=== PATIENT | female | born 1995 | race Caucasian/White ===

== ENCOUNTER 2018-04-12 10:29 | Emergency (ER) | payer BC, SELFPAY ==
[2018-04-12 10:31] VITALS: BP 123/78; PULSE 102; RESP 16; TEMP 37.6; O2SAT 98; BMI 23.6
--- NOTE | 2018-04-12 10:52 | CT_ITS ---
STUDY: CT ABDOMEN AND PELVIS WITH CONTRAST REASON FOR EXAM: Female, 22 years old. 4 day history of diarrhea. Blood in the stool. Chronic abdominal pain. RADIATION DOSAGE (If Supplied By Facility): CTDIvol = ( 7.94 ) mGy, DLP = ( 452.50 ) mGycm TECHNIQUE: Transaxial images were obtained from the dome of the diaphragm to the symphysis pubis with oral contrast. 100 ml of Isovue 300 contrast was administered. Sagittal and coronal images were reconstructed. Individualized dose optimization techniques were used for this CT. COMPARISON: None. FINDINGS: Minimal degree of dependent bibasilar atelectasis. The visualized portions of the heart are within normal limits. Normal liver. Normal gallbladder and extrahepatic biliary system. Normal spleen. Normal pancreas. Normal bilateral adrenal glands. Normal right kidney. Normal left kidney. There is a left-sided retrocrural aortic renal vein. Normal visualized stomach. Normal small intestine. Diffuse thickening of the colon worse in the right hemicolon. This is incomplete with colitis. The appendix is visualized and appears normal. Normal abdominal aorta. Normal inferior vena cava. Normal retroperitoneum. Normal urinary bladder. Small amount of free fluid in the pelvis. Normal abdominal wall. Normal osseous structures. CT/Abdomen/Pelvis WITH Contrast IMPRESSION: Findings in keeping with diffuse colitis worse in the right hemicolon. Small amount of free fluid in the pelvis. Electronically Signed: Estevan Wynne MD at 12:53 EDT Tel [phone], Service support ,
--- NOTE | 2018-04-12 10:55 | ED.VISSUMM ---
- ER Visit Summary Date of Service: 04/12/18 Chief Complaint: Blood in stool History of Present Illness: The patient is a 22 F whose had a fever up to 102 and diarrhea for the past 3 days. Today she noted blood in her stool as well. 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 She was seen by her doctor and was told it was likely a viral illness. Physical Examination: Vital signs are unremarkable. Patient sitting upright in bed no acute distress. Head neck examination is normal. Heart is regular rate and rhythm. Lung sounds are clear. Abdomen is soft and nontender. Active bowel sounds are noted throughout. Rectal examination reveals no obvious hemorrhoids. No gross blood on gloved finger. Test Results: Stool guaiac does return positive. CBC is normal. Chemistry studies are significant for potassium 3.3. Patency test is negative. CT the abdomen and pelvis shows diffuse colitis, worse in the right hemicolon. There is a small amount of free fluid in the pelvis. Emergency Department Course and Treatment: Patient was given a liter of IV fluids. On repeat evaluation she is resting comfortably. She will be given potassium replacement along with antibiotics for colitis. We did discuss the possibility this all being viral, however appearance on imaging is the same. With the patient having this much bowel involvement and having blood in the stool should be covered with antibiotics. Treatment Plan: [] Disposition: Discharge Impression: 1. Colitis 2. Mild hypokalemia This note was generated with [employer] dictation software. It may contain incorrect words, spelling, and punctuation that were not noted in review of the chart prior to signing ED Disposition - Plan for ED Patient: Chief Complaint: GI Bleed Referrals: Liliane Ellis MD [STAFF PHYSICIAN] -
[2018-04-12 11:45] LABS: Anion Gap 8 (5-15); BUN 8 mg/dL (7-18); BUN/Creat Ratio 9.6 RATIO (10-20); Calcium,Total 9.3 mg/dL (8.5-10.1); Chloride 103 mmol/L (98-107); Creatinine, Serum 0.83 mg/dL (0.55-1.02); EST Glomerular Filtration Rate 91 mL/min (>60); Est Glom Filt Rate - Afr Amer 111 mL/min (>60); Estimated Creatinine Clearance 92.59 ml/min; Glucose 104 mg/dL (74-106); Potassium 3.3 mmol/L (3.5-5.1); Sodium Level 140 mmol/L (136-145)
[2018-04-12 11:48] LABS: Absolute Lymphocyte Count 1.29 X10^3/ul (0.83-4.51); Absolute Neutrophil Count 5.3 X10^3/uL (2.0-7.7); Basophil# 0.02 X10^3/uL; Basophil% 0.3 % (0-1); Eosinophil# 0.03 X10^3/uL; Eosinophils% 0.4 % (0-5); Hematocrit 40.8 % (37-47); Hemoglobin 13.9 g/dl (12.0-15.0); Lymphocyte # 1.29 X10^3/ul (4.0); Lymphocyte % 17.1 % (19-41); Mean Corp Hgb Conc 34.1 g/gl (32-36); Mean Corpuscular Hgb 28.9 pg (27.0-32.0); Mean Corpuscular Volume 84.8 fL (81-99); Mean Platelet Vol. 9.7 fl (6.2-12.0); Monocyte# 0.95 X10^3/uL; Monocyte% 12.6 % (0-10); Neutrophil # 5.25 X10^3/uL (2.7-7.7); Neutrophil % 69.6 % (47-70); Platelet Count 189 K/mm3 (150-450); RBC Distribution Width CV 12.6 % (11.6-14.6); RBC Distribution Width SD 39.2 fl (35.1-43.9); Red Blood Count 4.81 M/mm3 (4.2-5.4); White Blood Count 7.5 K/mm3 (4.4-11.0)
[2018-04-12 11:49] LABS: POSITIVE COUNT NO; POSITIVE DIFFERENTIAL NO; POSITIVE MORPHOLOGY NO
[2018-04-12 11:52] LABS: Pregnancy, Serum, hCG Quali. NEGATIVE Negative (0-9 Nonpreg)
[2018-04-12 13:10] VITALS: BP 116/75; PULSE 96; RESP 16; O2SAT 98
[2018-04-12] MEDS: 0.9% Normal Saline 1,000 ML 150 ML IV (13:11)
--- NOTE | 2018-04-12 13:28 | ED.DEP ---
ED Disposition - Plan for ED Patient: Disposition: Home or Assisted Living Chief Complaint: GI Bleed Instructions: ED Gastroenteritis Bacterial Prescriptions: Ciprofloxacin [Cipro] 500 mg PO BID #14 tablet Potassium Chloride [K-Dur] 20 meq PO BID #10 tablet Metronidazole [Flagyl] 500 mg PO Q6H #40 tablet Referrals: Liliane Ellis MD [STAFF PHYSICIAN] - 5-7 Days
[2018-04-12] MEDS: metroNIDAZOLE 500 MG Tablet PO (13:38)
[2018-04-12] MEDS: Ciprofloxacin 500 MG Tablet PO (13:38)
== END 2018-04-12 13:42 | disposition home or self-care (01) ==
PROVIDERS: Emergency Provider Emergency Medicine; Family Provider Pediatrics; PCP Pediatrics
DX: K52.9 Noninfective gastroenteritis and colitis, unspecified (principal); E87.6 Hypokalemia
CPT/HCPCS: 74177; 80048; 82274; 84703; 85025; 96360; 96361; 99284; J7030; J7040; Q9967; A4216